=== PATIENT | male | born 1945 | race Two or more races ===

== ENCOUNTER 2016-08-25 16:26 | Emergency (ER) | payer MEDICARE, OTHER ==
[~2016-08-25] VITALS: Ht 172.7 cm; Wt 99.8 kg
[2016-08-25 16:48] VITALS: BP 157/88
[2016-08-25] MEDS ORDERED: Lidocaine 1% 10mg/ml/Epi 0.005mg/ml 30ml vial INJ ONE (17:15)
[2016-08-25] MEDS ORDERED: TdaP Vaccine 0.5ml Syr IM ONE (17:15)
[2016-08-25] MEDS ORDERED: Bacitracin Oint UD TOPIC ONE ×2 (17:57→18:00)
[2016-08-25 18:25] VITALS: BP 139/79
--- NOTE | 2016-08-25 21:13 | Emergency Room Report ---
History of Present Illness General Chief Complaint: Laceration Source: Patient, EMS (Liz Lira) Present Illness HPI 71-year-old male presents to emergency Department complaining of laceration to the forehead and bridge of the nose times one day. Patient stated that he fell after drinking alcohol. Patient was unable to estimate height of which he fell from or, how much he had to drink. Denies loss of consciousness. Denies pain. Patient does not know when his last tetanus vaccination was. ROS and history of present illness is limited due to poor patient cooperation, and intoxication (Liz Lira.Mitchel) Allergies: Coded Allergies: No Known Allergies (Unverified , 08/25/16) Patient History Limited by: other - poor cooperation secondary to ETOH intoxication Past Medical History: see triage record Past Surgical History: none Pertinent Family History: none Social History: Reports: alcohol use Reviewed Nursing Documentation: PMH: Agreed, PSxH: Agreed (Liz Lira) Nursing Documentation-PMH Past Medical History: No Stated History Hx Hypertension: Yes (Liz Lira) Review of Systems All Other Systems: limited - secondary to poor cooperation and ETOH intoxication (Liz Lira.Mitchel) Physical Exam Vital Signs Date Time Temp Pulse Resp B/P Pulse Ox O2 Delivery O2 Flow Rate FiO2 08/25/16 16:26 98.4 77 16 142/86 100 Room Air Sp02 EP Interpretation: reviewed, normal General Appearance: no apparent distress, alert, GCS 15, non-toxic Head: normocephalic, other - swelling and bruising noted to the bridge of the nose, several facial lacerations: two on the forehead ( 0.5cm in length each/ superficial) , and one across the bridge of the nose/glabellar area ( 1cm in length) Eyes: bilateral eye EOMI, bilateral eye PERRL, bilateral eye normal inspection ENT: hearing grossly normal, normal pharynx, no angioedema, normal voice, TMs + canals normal - no evidence of mitchell sign or csf leak, no hemotympanum, uvula midline, moist mucus membranes, other - no evidence of septal hematoma Neck: full range of motion, no bony tend, supple/symm/no masses Respiratory: chest non-tender, lungs clear, normal breath sounds, speaking full sentences Cardiovascular #1: regular rate, rhythm, no edema Gastrointestinal: normal bowel sounds, non tender, soft, no guarding, no rebound Rectal: deferred Genitourinary: normal inspection, no CVA tenderness Musculoskeletal: back normal, gait/station normal, normal range of motion, non- tender, no calf tenderness Neurologic: alert, oriented x3, responsive, motor strength/tone normal, sensory intact, speech normal Psychiatric: judgement/insight normal, memory normal, mood/affect normal, no suicidal/homicidal ideation Skin: normal color, no rash, warm/dry, well hydrated, other - swelling and bruising noted to the bridge of the nose, several facial lacerations: two on the forehead ( 0.5cm in length each/superficial) , and one across the bridge of the nose/glabellar area ( 1cm in length) Lymphatic: no adenopathy (Liz Lira P.AMyranda) Procedures Laceration/Wound Repair Laceration/Wound Repair #1: Consent: Verbal Wound Location: face - glabella/nasal bridge Wound Length (cm): 1 Wound Explored: clean Irrigated w/ Saline (ccs): 200 Anesthesia: Lidocaine w/ Epi Volume Anesthetic (ccs): 2 Wound Repaired With: sutures Suture Size/Type: 6:0 Number of Sutures: 3 Sterile Dressing Applied?: Yes Splint Applied?: No Sling Applied?: No Patient Tolerated: Well Complications: None Laceration/Wound Repair #2: Consent: Verbal Wound Location: face - left side of forehead Wound's Depth, Shape: superficial Wound Length (cm): 0 Wound Explored: clean Irrigated w/ Saline (ccs): 100 Wound Repaired With: Dermabond Sterile Dressing Applied?: No Splint Applied?: No Sling Applied?: No Patient Tolerated: Well Complications: None Laceration/Wound Repair #3: Consent: Verbal Wound Location: face - left forehead/eyebrow Wound's Depth, Shape: superficial Wound Length (cm): 0 Wound Explored: clean Irrigated w/ Saline (ccs): 100 Wound Repaired With: Dermabond Sterile Dressing Applied?: No Splint Applied?: No Sling Applied?: No Patient Tolerated: Well Complications: None Progress nasal bridge/glabellar wound was approximated and closed using 3 interrupted 6.0 Prolene sutures, two of which were horizontal mattresses (Liz Lira) Medical Decision Making PA Attestation Dr. Harden is my supervising Physician whom patient management has been discussed with. (Liz Lira) Diagnostic Impression: Primary Impression: Laceration Additional Impression: Nasal bone fracture Qualified Codes: S02.2XXA - Fracture of nasal bones, initial encounter for closed fracture ER Course 71-year-old male presents to emergency Department complaining of laceration to the forehead and bridge of the nose times one day. Patient stated that he fell after drinking alcohol. Patient was unable to estimate height of which he fell from or, how much he had to drink. Denies loss of consciousness. Denies pain. Patient does not know when his last tetanus vaccination was. ROS and history of present illness is limited due to poor patient cooperation, and intoxication Ddx considered but are not limited to laceration, tendon injury, cellulitis, amputation, subdural hematoma, ICH, concussion, septal hematoma, nasal fractures. Vital signs: are WNL, pt. is afebrile H&PE are most consistent with: possible nasal fracture, and several facial lacerations: Two on the forehead ( 0.5cm in length each/superficial) , and one across the bridge of the nose ( 1cm in length). ORDERS: -CT head No contrast: NO acute intracranial pathology, opacified rt. mastoid air cells, presumably inflammatory disease, no associated fx - per preliminary radiology report by Dr. Mcmanus - CT Facial bones no contrast: Acute nasal fx and contusion - per preliminary radiology report by Dr. Mcmanus ED INTERVENTIONS: -Tetanus vaccine was administered as pt. vaccination status was unknown. - The wound was copiously irrigated with normal saline, and explored for foreign body for which no FB was found., no evidence of septal hematoma - pt. is anesthetized with 1%lidocaine w. epi. - The nasal bridge/glabellar wound was approximated and closed using 3 interrupted 6.0 Prolene sutures, two of which were horizontal mattresses -The two superficial forehead lacerations were approximated using dermabond. Discussed with patient: That we make every effort to approximate the laceration as best as we can so that scarring will be as cosmetically pleasing as possible with our limited cosmetic skill set in the Emergency dept. Regardless of our best efforts there will be scarring after laceration repair. The extent of scarring is unknown at this time. DISCHARGE: At this time pt. is stable for d/c to home. Will provide printed patient care instructions, and any necessary prescriptions. Care plan and follow up instructions have been discussed with the patient prior to discharge. !! WRITTEN RX: Augmentin 875, Nixon, Pseudoephedrine, and Motrin (Liz Lira.Mitchel) ER Course Patient examined by me. I agree with treatment plan. (Devin Harden M.D.) Last Vital Signs Date Time Temp Pulse Resp B/P Pulse Ox O2 Delivery O2 Flow Rate FiO2 08/25/16 18:25 97.4 65 15 139/79 99 Room Air (Liz Lira.Mitchel) Disposition: HOME, SELF-CARE Condition: Stable Scripts Pseudoephedrine Hcl* (NEXAFED*) 30 Mg Tablet 30 MG ORAL Q6H Y for congestion for 7 Days, #30 TAB Prov: Liz iLra.A. 08/25/16 Ibuprofen* (MOTRIN*) 600 Mg Tablet 600 MG ORAL THREE TIMES A DAY, #30 TAB 0 Refills Prov: Liz Lira.A. 08/25/16 Hydrocodone Bit/Acetaminophen 5-325* (NORCO 5-325*) 1 Each Tablet 1 TAB ORAL Q6H Y for For Pain, #6 TAB 0 Refills Prov: Liz Lira.A. 08/25/16 Amoxicillin/Potassium Clav 875-125* (AUGMENTIN 875-125 TABLET*) 1 Each Tablet 1 TAB ORAL TWICE A DAY for 7 Days, #14 TAB Prov: Liz Lira.A. 08/25/16 Referrals: NOT CHOSEN IPA/,REFERRING (PCP) Patient Instructions: Laceration Care, Adult, Nasal Fracture, [id number] Additional Instructions: Take medications as directed. Follow up with PCP in 3-5 days Return sooner to ED if new symptoms occur, or current symptoms become worse. Do not drink alcohol, drive, or operate heavy machinery while taking Nixon as this may cause drowsiness. - Please note that this Emergency Department Report was dictated using [employer] engine technician technology software, occasionally this can lead to erroneous entry secondary to interpretation by the dictation equipment. Liz Lira Aug 25, 2016 21:13 Devin Harden M.D. Aug 29, 2016 01:18
[2016-08-25] MEDS ORDERED: IBUPROFEN600 MG ORAL (21:14)
[2016-08-25] MEDS ORDERED: NEXAFED30 MG ORAL (21:14)
[2016-08-25] MEDS ORDERED: AUGMENTIN 875-1 EAC1 ORAL (21:14)
[2016-08-25] MEDS ORDERED: NORCO 5-325 TA1 EACH ORAL (21:14)
[2016-08-25 21:32] VITALS: BP 135/75
[2016-08-25 21:41] VITALS: BP 135/75
--- NOTE | 2016-08-26 08:31 | Diagnostic Imaging Report ---
Indication: Headache Technique: spiral acquisitions obtained through the brain. Angled axial and coronal 5 x 5 mm slices were reconstructed. No IV contrast utilized. Radiation dose was minimized using automated exposure control Total dose length product 1337 mGycm. CTDIvol(s) 70 mGy Comparison: none FINDINGS: No acute hemorrhage or edema. No mass effect or midline shift. There is age-related enlargement of the ventricles and to a lesser extent the extra axial CSF spaces. There is periventricular deep white matter ischemic change. Normal salas-white differentiation. Visualized orbits are unremarkable. There is minimal ethmoid sinus disease. There is opacification of a few right mastoid air cells.. Intact calvarium. IMPRESSION: Chronic and age-related changes. Negative for acute intracranial bleed or mass effect Minimal ethmoid and right mastoid disease This agrees with the preliminary interpretation provided overnight by Dr. Houser The CT scanner at [facility] is accredited by the [employer] and the scans are performed using protocols designed to limit radiation exposure to as low as reasonably achievable to attain images of sufficient resolution adequate for diagnostic evaluation
--- NOTE | 2016-08-26 08:40 | Diagnostic Imaging Report ---
Indications: PAIN Technique: Spiral images obtained through the facial bones. No IV contrast utilized. Multiplanar reconstructions were generated.Total dose length product 644 mGycm. CTDIvol(s) 28mGy Comparison: Findings: There is a comminuted fracture of the tip of the nasal bone. Minimal associated soft tissue swelling is demonstrated. No other fractures identified. There is an impacted right mandibular wisdom tooth noted. The maxilla is edentulous. There is minimal opacification of the bilateral maxillary and sphenoid sinuses. No acute fractures. There is right mastoid disease. The retro-facial soft tissue structures appear unremarkable. Impression: Positive for nasal fracture, associated soft tissue swelling Minimal right mastoid disease Minimal ethmoid and maxillary sinus disease This agrees with the preliminary interpretation provided overnight by Dr. Houser The CT scanner at [facility] is accredited by the [employer] and the scans are performed using protocols designed to limit radiation exposure to as low as reasonably achievable to attain images of sufficient resolution adequate for diagnostic evaluation.
== END 2016-08-25 21:43 | disposition home or self-care (01) ==
LOC: EDBD 16:26 → EMR 17:50
DX: S01.81XA Laceration without foreign body of other part of head, initial encounter (principal); S02.2XXA Fracture of nasal bones, initial encounter for closed fracture; S01.21XA Laceration without foreign body of nose, initial encounter; W19.XXXA Unspecified fall, initial encounter; Y92.9 Unspecified place or not applicable; Z23 Encounter for immunization; I10 Essential (primary) hypertension; R51 Headache; J32.0 Chronic maxillary sinusitis; J32.2 Chronic ethmoidal sinusitis
CPT/HCPCS: 70450; 70486; 90471; 90715